=== PATIENT | male | born 1975 | race Two or more races ===

== ENCOUNTER 2016-08-14 22:11 | Emergency (ER) | payer SELFPAY ==
[~2016-08-14] VITALS: Ht 165.1 cm; Wt 79.4 kg
[2016-08-14 22:30] VITALS: BP 129/78
[2016-08-14] MEDS ORDERED: Bactrim DS (160mg/800mg) tab ORAL ONE (23:00)
[2016-08-14] MEDS ORDERED: HYDROmorphone 1mg/ml Carpuject IM ONE (23:00)
[2016-08-14] MEDS ORDERED: BACTRIM DS TAB1 EAC1 ORAL (23:24)
[2016-08-14] MEDS ORDERED: HYDROCODON-ACE1 EA15 ORAL (23:24)
--- NOTE | 2016-08-14 23:25 | Emergency Room Report ---
History of Present Illness General Chief Complaint: Skin Rash/Abscess Source: Patient Present Illness HPI This is a 41-year-old male with no past issue. He presents with an abscess to his left upper shoulder. Onset for last 4 days. His daughter tried to pop it 2 days ago. A drain a lot of smelly whitish stuff per patient. No fever or chills. No nausea no vomiting. Never had this problem before. Pain is 7/10. Allergies: Coded Allergies: No Known Allergies (Unverified , 08/14/16) Patient History Past Medical History: see triage record, old chart reviewed Past Surgical History: none Pertinent Family History: none Social History: Denies: smoking Immunizations: other Reviewed Nursing Documentation: PMH: Agreed, PSxH: Agreed Nursing Documentation-PMH Past Medical History: No Stated History Review of Systems Eye: Denies: blurred vision, eye pain ENT: Denies: ear pain, nose congestion, throat swelling Respiratory: Denies: cough, shortness of breath Cardiovascular: Denies: chest pain, palpitations Gastrointestinal: Denies: abdominal pain, diarrhea, nausea, vomiting Musculoskeletal: Denies: back pain, joint pain Skin: Denies: rash Neurological: Denies: headache, numbness Endocrine: Denies: increased thirst, increased urine Hematologic/Lymphatic: Denies: easy bruising All Other Systems: negative except mentioned in HPI Physical Exam Vital Signs Date Time Temp Pulse Resp B/P Pulse Ox O2 Delivery O2 Flow Rate FiO2 08/14/16 22:15 98.4 72 18 131/77 98 Room Air vitals normal Sp02 EP Interpretation: reviewed, normal General Appearance: well appearing, no apparent distress, alert Head: normocephalic, atraumatic Eyes: bilateral eye EOMI, bilateral eye PERRL ENT: hearing grossly normal, normal pharynx Neck: full range of motion, supple, no meningismus Respiratory: chest non-tender, lungs clear, normal breath sounds Cardiovascular #1: regular rate, rhythm, no murmur Gastrointestinal: normal bowel sounds, non tender, no mass, no organomegaly, no bruit, non-distended Musculoskeletal: back normal, gait/station normal, normal range of motion, other - left upper back: 8cm area of erythema and induration. necrotic center of 3cm Neurologic: alert, oriented x3 Psychiatric: mood/affect normal Skin: warm/dry Procedures Incision and Drainage Incision and Drainage : Consent: Verbal Site: left upper back Blade Size: 11 I & D Procedure: betadine prep, sterile drapes applied, sterile dressing applied, gauze wick placed Wound Location: other Anesthesia: 1% Lidocaine Patient Tolerated: Well Complications: None Progress Local lidocaine injected. I debrided necrotic tissue in the center. Small amt of pus. loculated area broken up. wound irrigated and packed with iodoform gauze. pt tolerated procedure w/o problem. Medical Decision Making Diagnostic Impression: Primary Impression: Abscess ER Course Patient with an abscess to his left shoulder posteriorly. I suspect that this is an MRSA infection of any sebaceous cyst. The reason for that is because he is very thick fibrous necrotic tissue that I had to debride. Patient was I&D. I will have patient come back in 2 days for recheck. I see no evidence of necrotizing fasciitis. No evidence of deep infection. Patient said that he did not have any mass in that area prior to 4 days ago. Last Vital Signs Date Time Temp Pulse Resp B/P Pulse Ox O2 Delivery O2 Flow Rate FiO2 08/14/16 22:15 98.4 72 18 131/77 98 Room Air Status: improved Disposition: HOME, SELF-CARE Condition: Stable Scripts Hydrocodone/Acetaminophen 5-325* (HYDROCODONE/ACETAMINOPHEN 5-325*) 1 Each Tablet 1 TAB ORAL Q6H Y for For Pain, #20 TAB 0 Refills Prov: PETAR ANGELA M.D. 08/14/16 Trimethoprim/Sulfamethoxazole 160/800* (BACTRIM DS TABLET*) 1 Each Tablet 1 TAB ORAL Q12H, #14 TAB 0 Refills Prov: PETAR ANGELA M.D. 08/14/16 Referrals: NOT CHOSEN ABIGAIL/,REFERRING (PCP) Patient Instructions: Abscess Additional Instructions: Followup in 2 days for wound check. Return for worsening symptoms. PETAR ANGELA M.D. August 14, 2016 23:25
[2016-08-14 23:31] VITALS: BP 135/78
== END 2016-08-14 23:30 | disposition home or self-care (01) ==
LOC: EMR 22:30
DX: L02.212 Cutaneous abscess of back [any part, except buttock and flank] (principal)
CPT/HCPCS: 10060; 87070; 87205; 96372; 99284; J1170

== ENCOUNTER 2016-08-16 19:11 | Emergency (ER) | payer SELFPAY ==
[~2016-08-16] VITALS: Ht 165.1 cm; Wt 79.4 kg
[~2016-08-16 19:11] MED LIST: BACTRIM DS TAB1 EAC1 ORAL; HYDROCODON-ACE1 EA15 ORAL
--- NOTE | 2016-08-16 20:00 | Emergency Room Report ---
History of Present Illness General Chief Complaint: Wound Recheck/Suture Removal Source: Patient Present Illness HPI 41 YO Male presents to the ED c/o recently incised abscess of the left posterior shoulder, pt. presents for wound re-evaluation with wound packing in place. Patient reports tenderness described as 5/10 in severity denies fevers, chills. Patient reports continued discharge from the wound. Patient states he has been taking antibiotics as prescribed.Denies CP, Palpitations, LOC, AMS, dizziness, Changes in Vision, Sensation, paresthesias, or a sudden severe headache. Allergies: Coded Allergies: No Known Allergies (Unverified , 08/14/16) Patient History Past Medical History: see triage record Past Surgical History: none Pertinent Family History: none Immunizations: UTD Reviewed Nursing Documentation: PMH: Agreed, PSxH: Agreed Nursing Documentation-PMH Past Medical History: No Stated History Review of Systems All Other Systems: negative except mentioned in HPI Physical Exam Vital Signs Date Time Temp Pulse Resp B/P Pulse Ox O2 Delivery O2 Flow Rate FiO2 08/16/16 19:33 98.2 66 16 123/72 98 Room Air Sp02 EP Interpretation: reviewed, normal General Appearance: no apparent distress, alert, GCS 15, non-toxic Head: normocephalic, atraumatic Eyes: bilateral eye PERRL, bilateral eye normal inspection ENT: hearing grossly normal, normal pharynx, no angioedema, normal voice Neck: full range of motion, supple/symm/no masses Respiratory: lungs clear, normal breath sounds, speaking full sentences Cardiovascular #1: regular rate, rhythm, no edema, normal capillary refill Musculoskeletal: back normal, gait/station normal, normal range of motion, non- tender Neurologic: alert, oriented x3, responsive, motor strength/tone normal, sensory intact, speech normal Psychiatric: judgement/insight normal, memory normal, mood/affect normal Skin: no rash, warm/dry, well hydrated, other - healing previously incised/ debrided 8cm abscess of the left posterior shoulder. debrided down to the fascia. Medical Decision Making PA Attestation Dr. Myles is my supervising Physician whom patient management has been discussed with. Diagnostic Impression: Primary Impression: Encounter for wound re-check ER Course Pt. presents to the ED c/o recently incised abscess of the left posterior shoulder, pt. presents for wound re-evaluation with wound packing in place. Ddx considered but are not limited to cellulitis, abscess, cystic acne, necrotizing fasciitis, insect bite. Vital signs: are WNL, pt. is afebrile H&PE are most consistent with healing previously incised/ debrided 8cm abscess of the left posterior shoulder. ORDERS: none required at this time, the diagnosis is clinical ED INTERVENTIONS: -wound packing removed, wound is evaluated no signs of progression of infection or necrosis at this time. - Sterile iodoform gauze is replaced. - Sterile dressing is applied. d/w pt. to continue taking po abx and to look for signs of infection . DISCHARGE: At this time pt. is stable for d/c to home. Will provide printed patient care instructions, and any necessary prescriptions. Care plan and follow up instructions have been discussed with the patient prior to discharge. Last Vital Signs Date Time Temp Pulse Resp B/P Pulse Ox O2 Delivery O2 Flow Rate FiO2 08/16/16 19:33 98.2 66 16 123/72 98 Room Air Disposition: HOME, SELF-CARE Condition: Stable Patient Instructions: Wound Check, Wound Packing Additional Instructions: Take medications as directed. Follow up with PCP in 3-5 days Return sooner to ED if new symptoms occur, or current symptoms become worse. Return for Wound Re-Check in 72 hours ( 3 days) - Please note that this Emergency Department Report was dictated using [employer]hat maker technology software, occasionally this can lead to erroneous entry secondary to interpretation by the dictation equipment. Minnie Vernon August 16, 2016 20:00
[2016-08-16 20:15] VITALS: BP 123/72
== END 2016-08-16 20:12 | disposition home or self-care (01) ==
LOC: EMR 19:49
DX: L02.414 Cutaneous abscess of left upper limb (principal)
CPT/HCPCS: 99281

== ENCOUNTER 2016-08-19 20:52 | Emergency (ER) | payer SELFPAY ==
[~2016-08-19] VITALS: Ht 165.1 cm; Wt 79.4 kg
[2016-08-19] MEDS ORDERED: BACTRIM DS TAB1 EAC1 ORAL (21:44)
--- NOTE | 2016-08-19 21:45 | Emergency Room Report ---
History of Present Illness General Chief Complaint: Wound Recheck/Suture Removal Source: Patient Present Illness HPI This is a 43-year-old male whom I saw last week for a large left upper back abscess that grew out MRSA. He was I&D. He came back for wound check her couple days later. He is here again for second. Doing well. Taken his antibiotics. No fever chills but no nausea no vomiting. Allergies: Coded Allergies: No Known Allergies (Unverified , 08/14/16) Patient History Past Medical History: see triage record, old chart reviewed Past Surgical History: none Pertinent Family History: none Social History: Denies: smoking Immunizations: other Reviewed Nursing Documentation: PMH: Agreed, PSxH: Agreed Nursing Documentation-PMH Past Medical History: No Stated History Review of Systems Eye: Denies: blurred vision, eye pain ENT: Denies: ear pain, nose congestion, throat swelling Respiratory: Denies: cough, shortness of breath Cardiovascular: Denies: chest pain, palpitations Gastrointestinal: Denies: abdominal pain, diarrhea, nausea, vomiting Musculoskeletal: Denies: back pain, joint pain Skin: Denies: rash Neurological: Denies: headache, numbness Endocrine: Denies: increased thirst, increased urine Hematologic/Lymphatic: Denies: easy bruising All Other Systems: negative except mentioned in HPI Physical Exam Vital Signs Date Time Temp Pulse Resp B/P Pulse Ox O2 Delivery O2 Flow Rate FiO2 08/19/16 21:02 98.1 63 18 124/73 97 Room Air vitals normal Sp02 EP Interpretation: reviewed, normal General Appearance: well appearing, no apparent distress, alert Head: normocephalic, atraumatic Eyes: bilateral eye EOMI, bilateral eye PERRL ENT: hearing grossly normal, normal pharynx Neck: full range of motion, supple, no meningismus Respiratory: chest non-tender, lungs clear, normal breath sounds Cardiovascular #1: regular rate, rhythm, no murmur Gastrointestinal: normal bowel sounds, non tender, no mass, no organomegaly, no bruit, non-distended Musculoskeletal: back normal, gait/station normal, normal range of motion Neurologic: alert, oriented x3 Psychiatric: mood/affect normal Skin: warm/dry, other - Left upper back over the scapular area: Wound healing well. I removed the packing in there is only scant amount of necrotic tissue at the base. Good granulation tissue. Procedures Additional Procedure Procedure Narrative Procedure: Packing change Indication: Abscess Description: I removed the old iodoform gauze. It was soaked with purulent discharge. New iodoform gauze placed. Patient tolerated procedure without a problem. I did remove some of the necrotic tissue with a tweezer. Medical Decision Making Diagnostic Impression: Primary Impression: Encounter for wound re-check ER Course Patient with an abscess to his back. He grew out MRSA. It is healing well. We 'll discharge home with 3 more days of antibiotics with total 10. I show family how to do dressing changes. Will recheck in a week Last Vital Signs Date Time Temp Pulse Resp B/P Pulse Ox O2 Delivery O2 Flow Rate FiO2 08/19/16 21:02 98.1 63 18 124/73 97 Room Air Status: improved Disposition: HOME, SELF-CARE Condition: Stable Scripts Trimethoprim/Sulfamethoxazole 160/800* (BACTRIM DS TABLET*) 1 Each Tablet 1 TAB ORAL Q12H, #6 TAB 0 Refills Prov: PETAR ANGELA M.D. 08/19/16 Patient Instructions: Wound Check Additional Instructions: Followup with your DrGlory in 7 days for recheck. Change dressing every day. Return if worse. PETAR ANGELA M.D. August 19, 2016 21:45
[2016-08-19 21:50] VITALS: BP 124/73
[2016-08-19 21:52] VITALS: BP 124/73
== END 2016-08-19 21:52 | disposition home or self-care (01) ==
LOC: EDBD 20:52 → EMR 21:10
DX: L02.212 Cutaneous abscess of back [any part, except buttock and flank] (principal); B95.62 Methicillin resistant Staphylococcus aureus infection as the cause of diseases classified elsewhere
CPT/HCPCS: 99283